=== PATIENT | female | born 1990 | race Caucasian/White ===

== ENCOUNTER 2017-10-12 21:50 | Inpatient (IN) | payer MEDICAID ==
[~2017-10-12] VITALS: Ht 157.5 cm; Wt 49.9 kg
[2017-10-12 22:16] VITALS: BP 123/79
--- NOTE | 2017-10-12 22:23 | NUR ---
TO LOBBY, A/W OTIS MAHAJAN NOTED
[2017-10-12 23:00] LABS: APPEARANCE,URINE CLOUDY (CLEAR); BILIRUBIN,URINE NEGATIVE (NEGATIVE); BLOOD, URINE 3+ (NEGATIVE); COLOR,URINE YELLOW (YELLOW); LEUKOCYTE ESTERASE ,URINE 1+ (NEGATIVE); NITRITE, URINE NEGATIVE (NEGATIVE); UGLUCOSE NEGATIVE (NEGATIVE)
[2017-10-12 23:06] LABS: BASOPHILS # (AUTO) 0.3 K/uL (0.00-0.22); BASOPHILS % (AUTO) 3.2 % (0.0-2.0); EOSINOPHILS # (AUTO) 0.4 K/uL (0-0.4); EOSINOPHILS % (AUTO) 4.3 % (0.0-4.0); HEMATOCRIT 38.7 % (36-48); LYMPHOCYTES # (AUTO) 3.3 K/uL (2.5-16.5); LYMPHOCYTES % (AUTO) 36.1 % (20.5-51.1); MEAN CORPUSCULAR HEMOGLOBIN 26 pg (27-31); MEAN CORPUSCULAR HGB CONC 34 g/dL (33-37); MEAN CORPUSCULAR VOLUME 77 fL (80-94); MONOCYTES # (AUTO) 0.7 K/uL (0.8-1.0); MONOCYTES % (AUTO) 7.5 % (1.7-9.3); NEUTROPHILS # (AUTO) 4.3 K/uL (1.8-7.7); NEUTROPHILS % (AUTO) 48.9 % (42.2-75.2); RED CELL DISTRIBUTION WIDTH 13.6 % (11.6-13.7); WHITE BLOOD COUNT (AUTO) 9.1 K/uL (4.8-10.8)
[2017-10-12 23:13] LABS: PLATELET COUNT (AUTO) 182 K/uL (140-450)
[2017-10-12 23:31] LABS: RBC,URINE 20-50 /HPF (0-5); WBC,URINE 16-25 (MOD) /HPF (0-5)
--- NOTE | 2017-10-12 23:53 | NUR ---
SPOKE TO ONRAD,CRITICAL RAD, RUPTURED ECTOPIC. ER MD DR CHARLES MADE AWARE
--- NOTE | 2017-10-13 00:06 | NUR ---
TO ER BED 11
--- NOTE | 2017-10-13 00:08 | NUR ---
PATIENT IS A 27 Y/O FEMALE WHO PRESENTS TO THE ED C/O ABD PAIN. PT STATES, "I AM AND MY STOMACH HAS BEEN HURTING." PT REPORTS 8/10 SHARP LEFT LOWER ABD PAIN THAT DOES NOT RADIATE. PT DENIES CP, SOB, REPORTS NAUSEA DENIES VOMITING/DIARRHEA. PT AAOX4, RR EVEN/UNLABORED. PT REPOSITIONED FOR COMFORT, BED IN LOWEST POSITION. ER MD DR. CHARLES NOTIFIED. WILL CONTINUE TO MONITOR. Addendum: 10/13/17 at 0020 by MEDDCV PATIENT IS A 27 Y/O FEMALE WHO PRESENTS TO THE ED C/O ABD PAIN. PT STATES, "I AM AND MY STOMACH HAS BEEN HURTING." PT REPORTS BEING , . PT REPORTS 8/10 SHARP LEFT LOWER ABD PAIN THAT DOES NOT RADIATE. PT DENIES CP, SOB, REPORTS NAUSEA DENIES VOMITING/DIARRHEA. REPORTS MILD VAGINAL BLEEDING. PT AAOX4, RR EVEN/UNLABORED. PT REPOSITIONED FOR COMFORT, BED IN LOWEST POSITION. ER MD DR. CHARLES NOTIFIED. WILL CONTINUE TO MONITOR.
[2017-10-13] MEDS ORDERED: NACL 0.9% 1,000 ML IV ONE (00:15)
[2017-10-13] MEDS ORDERED: MORPHINE SULFATE 4 MG/ML SYR IVP ONE (00:15)
[2017-10-13] MEDS ORDERED: HYDROcodone/APAP 7.5/325 MG 1 TAB PO PRN (01:35)
[2017-10-13] MEDS ORDERED: ACETAMINOPHEN 325 MG TAB PO PRN (01:35)
[2017-10-13] MEDS ORDERED: ONDANSETRON 4 MG/2 ML VIAL IVP PRN (01:35)
[2017-10-13] MEDS ORDERED: NACL 0.9% 1,000 ML IV SCH (01:35)
--- NOTE | 2017-10-13 01:50 | NUR ---
PT ARRIVED AT UNIT VIA GURNEY FROM ED, PT STABLE, NO DISTRESS NOTED, IV TO R AC 18G SL, PATENT, PT ON ROOM AIR NO SOB, PT STATED ABD PAIN 4/10 AT THIS MOMENT, TOLERABLE, ORIENT PT TO ROOM, INITIAL ASSESSMENT DONE, ALL SAFETY PRECAUTION DONE, ALL SAFETY PRECAUTION MET, WILL CONTINUE TO MONITOR.
--- NOTE | 2017-10-13 01:55 | NUR ---
DR. JC AT BEDSIDE TALKING TO PT, PT STABLE, NO DISTRESS NOTED.
[2017-10-13 02:00] VITALS: BP 115/77
--- NOTE | 2017-10-13 02:03 | NUR ---
Patient will be admitted to care of DR. GARRETT. Admited to TELE. Will go to room 120A. Belongings list completed. Report to GAUTAM HODGE.
[2017-10-13 02:23] LABS: CHOL/HDL RATIO 3.2 (1-4.5); FREE T4 (FREE THYROXINE) 0.8 ng/dL (0.76-1.46); MAGNESIUM 2.2 mg/dL (1.8-2.4); THYROID STIMULATING HORMONE 3.98 uIU/mL (0.34-3.74)
[2017-10-13 02:25] LABS: BARBITURATE, URINE NEG. ng/ml (NEG <=200); BENZODIAZEPINE, URINE NEG. ng/mL (NEG <=200); CANNABINOID, URINE NEG. ng/mL (NEG <=50); COCAINE, URINE NEG. ng/mL (NEG <=300); OPIATE, URINE POS. ng/mL (NEG <=2000); PHENCYCLIDINE SCREEN,URINE NEG. ng/mL (NEG <=25)
--- NOTE | 2017-10-13 03:22 | NUR ---
CHECKED ON PT, PT STABLE, NO DISTRESS NOTED, SLEEPING, CALL LIGHT WITHIN REACH, WILL CONTINUE TO MONITOR.
[2017-10-13 04:00] VITALS: BP 96/58
--- NOTE | 2017-10-13 04:15 | NUR ---
PT AMBULATED TO RESTROOM AND BACK TO BED, TOLERATED WELL, NO DISTRESS NOTED, CALL LIGHT WITHIN REACH, WILL CONTINUE TO MONITOR.
[2017-10-13 04:20] LABS: ANION GAP 16.5 (8-16); CARBON DIOXIDE 25.9 mmol/L (21-32); CREATININE 0.9 mg/dL (0.6-1.3); POTASSIUM 3.4 mmol/L (3.5-5.1)
[2017-10-13] MEDS ORDERED: LEVOFLOXACIN 500 MG/D5W PREMIX 100 ML IV SCH (04:45)
--- NOTE | 2017-10-13 05:01 | NUR ---
DUE MEDICATION GIVEN, PT TOLERATED WELL, NO DISTRESS NOTED, CALL LIGHT WITHIN REACH, WILL CONTINUE TO MONITOR.
--- NOTE | 2017-10-13 07:20 | NUR ---
ENDORSED PT TO DAY SHIFT NURSE GENET HODGE, PT STABLE, NO DISTRESS NOTED, CALL LIGHT WITHIN REACH.
--- NOTE | 2017-10-13 07:21 | NUR ---
RECEIVED REPORT FROM SEQUINS SPOOLER NURSE GAUTAM AT BEDSIDE FOR CONTINUITY OF CARE. PT IS AWAKE AND AAOX4. INTRODUCED SELF AND UPDATED BOARD. MALE FRIEND IS AT BEDSIDE. IV TO R AC 18G INFUSING NS AT 50ML/HR. SITE INTACT. NO COMPLAINTS OF CHEST PAIN. LUNG SOUNDS CLEAR. O2 SAT 97% ON RA. SKIN WARM AND DRY. PT DENIES HEAVY VAGINAL BLEEDING. DR. RENEE CAME IN AND SAW PT AND GAVE APPOINTMENT FOR FOLLOW UP. NO SIGNS OF DISTRESS. BED IN LOW POSITION, WHEELS LOCKED, CALL LIGHT WITHIN REACH. WILL CONTINUE TO MONITOR.
[2017-10-13 08:00] VITALS: BP 112/68
[2017-10-13] MEDS ORDERED: NITROFURANTOIN 100 MG CAP PO SCH (08:00)
[2017-10-13] MEDS ORDERED: LACTOBACILLUS RHAMNOSUS GG 1 EACH CAP PO SCH (09:00)
[2017-10-13] MEDS ORDERED: DOCUSATE SODIUM 100 MG GELCAP PO SCH (09:00)
--- NOTE | 2017-10-13 09:06 | NUR ---
ADMINISTERED SCHEDULED MEDS. PT REFUSED COLACE. EXPLAINED RISK AND BENEFITS. PT STILL REFUSED MED STATED SHE ALREADY HAD A BM LAST NIGHT. TOLERATED MEDS WELL. NO SIGNS OF DISTRESS. WILL CONTINUE TO MONITOR.
--- NOTE | 2017-10-13 09:18 | NUR ---
PATIENT HAS BEEN SCREENED AND CATEGORIZED LOW NUTRITION RISK. PATIENT WILL BE SEEN WITHIN 7 DAYS OF ADMISSION. 10/19/[address]
[2017-10-13] MEDS ORDERED: POTASSIUM CHLORIDE 10 MEQ TABER PO SCH (10:16)
--- NOTE | 2017-10-13 10:25 | NUR ---
CM NOTE PER END WORKER SAGE, REVIEWS SHOULD ONLY BE SENT TO [facility]. PER LEEANN OF [facility]# [phone] THERE IS NO ASSIGNED DATA OPERATIONS LEADER YET BUT TO SEND REVIEWS TO FAX# [phone]. INITIAL REVIEW FAXED TO [facility] [phone] # [phone].
[2017-10-13] MEDS ORDERED: LEVO750T2 PO (10:31)
[2017-10-13] MEDS ORDERED: LACT1.4C PO (10:32)
--- NOTE | 2017-10-13 10:40 | NUR ---
ADMINISTERED K-DUR FOR K 3.4. PT TOLERATED WELL. FAMILY IS AT BEDSIDE. PT DENIES PAIN. NO SIGNS OF DISTRESS. CALL LIGHT WITHIN REACH. WILL CONTINUE TO MONITOR.
--- NOTE | 2017-10-13 12:00 | NUR ---
PT D/C TO GO HOME. GAVE D/C FORMS, INSTRUCTIONS, RX, LABS, AND FOLLOW UP APPOINTMENT. PT VERBALIZED UNDERSTANDING AND SIGNED FORM. REMOVED IV FROM R AC 18. IV CATHETER TIP INTACT. APPLIED DRESSING AND PRESSURE TO SITE. NO BLEEDING NOTED. REMOVED ID BAND AND TELE MONITOR. PT CHANGED IN OWN CLOTHES AND LEFT WITH ALL PERSONAL BELONGINGS. LEFT UNIT VIA AMBULATION ACCOMPANIED BY FAMILY MEMBERS AND RN. PT LEFT IN STABLE CONDITION.
[2017-10-13 13:47] LABS: PROTHROMBIN TIME 9.8 secs (10.8-13.4)
--- NOTE | 2017-10-14 14:41 | NUR ---
CM NOTE DISCHARGE SUMMARY FAXED TO [facility] [phone] # [phone].
== END 2017-10-13 12:00 | disposition home or self-care (01) | DRG 564 ==
LOC: MED 21:50 → MTU 10-13 01:40
PROVIDERS: ADMIT Family Medicine; ATTEND Family Medicine
DX: O03.9 Complete or unspecified spontaneous abortion without complication (principal); O00.90 Unspecified ectopic pregnancy without intrauterine pregnancy; N39.0 Urinary tract infection, site not specified; E87.6 Hypokalemia
CPT/HCPCS: 36415; 71045; 76830; 80048; 80305; 81001; 82150; 83036; 83690; 83735; 83880; 84100; 84439; 84443; 84484; 84702; 85025; 85610; 85730; 86900; 86901; 87081; 87086; 96361; 96374; 99285; J1956; J2270; J7030; Q0092